=== PATIENT | female | born 1945 | race Two or more races ===

== ENCOUNTER → 2023-10-04 15:29 | Outpatient (REF) | payer MEDICARE, BC, SELFPAY | LOC: MRI 3T 15:29 | PROVIDERS: ATTENDING PHYSICIAN Psychiatry & Neurology Neurology; FAMILY PHYSICIAN Internal Medicine | DX: G62.9 Polyneuropathy, unspecified (principal); M21.379 Foot drop, unspecified foot | CPT/HCPCS: 70553; 72148; A9575 ==